=== PATIENT | male | born 1960 | race Caucasian/White ===

== ENCOUNTER 2022-10-30 10:42 | Outpatient (CLI) | payer BC, SELFPAY ==
[2022-10-30 17:54] LABS: Chloride* 103 mmol/L (96-114); Sodium* 142 mmol/L (135-149)
[2022-10-30 17:55] LABS: Potassium* 5.7 mmol/L (3.6-5.1)
[2022-10-30 17:57] LABS: Blood Urea Nitrogen* 22 mg/dL (7-30); Carbon Dioxide* 31 mmol/L (20-32); Cholesterol* 192 mg/dL (90-199); Creatinine* 1.4 mg/dL (0.5-1.5); Estimated Glomerular Filt Rate 56 ml/min
[2022-10-30 17:58] LABS: Calcium* 9.6 mg/dL (8.4-10.6); Glucose* 106 mg/dL (60-115); HDL Cholesterol* 55 mg/dL (>=40); LDL Cholesterol Calculated 101 mg/dL (<100); Triglycerides* 178 mg/dL (40-149)
== END 2022-10-30 10:43 | disposition home or self-care (01) ==
PROVIDERS: PCP Family Medicine; Visit Provider Family Medicine
DX: E78.5 Hyperlipidemia, unspecified (principal); I10 Essential (primary) hypertension
CPT/HCPCS: 80048; 80061

== ENCOUNTER 2023-11-09 08:36 | Outpatient (CLI) | payer BC, SELFPAY | END 2023-11-09 08:37 | disposition home or self-care (01) | PROVIDERS: PCP Family Medicine; Visit Provider Family Medicine | DX: Z00.00 Encounter for general adult medical examination without abnormal findings (principal); I10 Essential (primary) hypertension; E78.5 Hyperlipidemia, unspecified; Z13.0 Encounter for screening for diseases of the blood and blood-forming organs and certain disorders involving the immune mechanism; Z12.5 Encounter for screening for malignant neoplasm of prostate | CPT/HCPCS: 80048; 80061; G0103 ==

== ENCOUNTER 2024-11-10 10:08 | Outpatient (CLI) | payer BC, SELFPAY | END 2024-11-10 10:09 | disposition home or self-care (01) | PROVIDERS: PCP Family Medicine; Visit Provider Family Medicine | DX: I10 Essential (primary) hypertension (principal); E78.2 Mixed hyperlipidemia; Z13.29 Encounter for screening for other suspected endocrine disorder; Z13.21 Encounter for screening for nutritional disorder; Z12.5 Encounter for screening for malignant neoplasm of prostate | CPT/HCPCS: 80048; 80061; 82607; 84439; 84443; G0103 ==

== ENCOUNTER 2025-09-11 06:57 | Outpatient (CLI) | payer BC, SELFPAY ==
--- NOTE | 2025-09-11 07:15 | MR_ITS ---
[facility] [address] [facility] [address] Phone:?[phone] Fax:?[phone] Referring Physician Information: Selvin Duran M.D. [id number] [address] Phone:?[phone] Fax:?[phone] Patient:Farhana Clarke D.O.B:?1960 Sex:?Male Phone:?[phone] [facility] MRN:?[id number] Exam Date:?09/11/2025 EXAM: MRI of the LEFT SHOULDER without contrast CLINICAL: Left shoulder pain. Evaluate for rotator cuff tear. COMPARISONS: X-rays dated 09/06/2025. TECHNICAL: Multiplanar multisequence MRI of the left shoulder was obtained. SEDATION: None. CONTRAST: None. FINDINGS: Rotator cuff: Supraspinatus/Infraspinatus: There is mild tendinosis of the distal supraspinatus and infraspinatus tendons. There is mild partial articular surface and interstitial tearing of the distal supraspinatus tendon. No significant infraspinatus tendon tear. No significant fatty atrophy of the muscles. Teres minor: No tendinosis, tear or atrophy. Subscapularis: Mild tendinosis of the distal tendon without evidence of significant tendon tear. No significant fatty atrophy of the muscle. Bursae: Subacromial-subdeltoid: No significant bursal fluid. Subcoracoid: No significant bursal fluid. Coracoacromial arch: Acromion morphology: Type I. No os acromiale. Acromiohumeral space: Within normal limits. Coracohumeral space: Within normal limits. Biceps tendon, long head: Mild tendinosis of the intra-articular tendon with moderate fluid about the imaged proximal extra-articular tendon. No significant tendon tear or displacement. Glenohumeral joint: Small volume of glenohumeral joint fluid is present. Articular cartilage: Evaluation is relatively limited by artifact. There is however evidence of full-thickness chondral loss involving the superomedial humeral head as well as involving the superior glenoid. Capsule: There is thickening and increased intermediate signal involving the inferior glenohumeral ligament. No capsular disruption identified. Labrum: There is attenuation and tearing of the superior labrum. Scattered degenerative changes involving the remainder of the glenoid labrum. No perilabral cyst identified. Bones: No suspicious marrow signal alteration, fracture or dislocation. Acromioclavicular joint: Mild to moderate changes of arthrosis. No AC joint widening. IMPRESSION: 1. Mild tendinosis of the distal supraspinatus, infraspinatus and subscapularis tendons. There is mild partial tearing of the distal supraspinatus tendon without additional rotator cuff tendon tear identified. 2. Mild tendinosis of the intra-articular long head biceps tendon with moderate fluid about the imaged proximal extra articular tendon. 3. Full-thickness chondral loss involving the glenohumeral joint as above. There is attenuation and tearing of the superior labrum with scattered degenerative changes involving the remainder of the glenoid labrum. 4. Appearance of the inferior glenohumeral ligament which can be seen in patients with adhesive capsulitis. 5. 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 JCZ Electronically signed on 09/11/2025 10:33:00 AM by Obey Willis D.O.
== END 2025-09-11 06:58 | disposition home or self-care (01) ==
LOC: MRI 06:58
PROVIDERS: PCP Family Medicine; Visit Provider Orthopaedic Surgery
DX: M25.512 Pain in left shoulder (principal); M75.102 Unspecified rotator cuff tear or rupture of left shoulder, not specified as traumatic; S43.432A Superior glenoid labrum lesion of left shoulder, initial encounter; M75.02 Adhesive capsulitis of left shoulder; M19.012 Primary osteoarthritis, left shoulder; S49.92XA Unspecified injury of left shoulder and upper arm, initial encounter
CPT/HCPCS: 73221